=== PATIENT | male | born 1975 | race Caucasian/White ===

== ENCOUNTER 2017-10-07 07:13 | Emergency (ER) | payer MEDICAID ==
[2017-10-07 07:40] LABS: BASOPHILS 0.1 % (0-2); EOSINOPHILS 0.1 % (0-7); HEMOGLOBIN 14.3 g/dL (13.5-17.5); IMMATURE GRANULOCYTES 0.2 % (0-5); LYMPHOCYTES 24.1 % (15-50); MCH 28.5 pg (26.0-34.0); MCHC 33.3 g/dL (31.0-37.0); MCV 85.8 fL (80.0-100.0); MEAN PLATELET VOLUME 10.8 fL (7.4-10.4); MONOCYTES 6.1 % (2-11); NEUTROPHILS 69.4 % (40-80); PLATELET COUNT 185 10x3/uL (130-400); RBC 5.01 10x6/uL (4.20-6.10); RDW 18.2 % (11.5-14.5); WBC 13.6 10x3/uL (4.8-10.8)
[2017-10-07 07:56] LABS: ALBUMIN 4.7 g/dL (3.4-5.0); ALKALINE PHOSPHATASE 109 U/L (46-116); ALT (SGPT) 34 U/L (10-68); CALC OSMOLALITY 270 mosm/kg (275-300); CALCIUM 9.7 mg/dL (8.5-10.1); CARBON DIOXIDE 16.4 mmol/L (21.0-32.0); CHLORIDE - SERUM 95 mmol/L (98-107); CREATININE - SERUM 1.1 mg/dL (0.6-1.3); GLUCOSE 88 mg/dL (74-106); POTASSIUM - SERUM 5.7 mmol/L (3.5-5.1); PROTEIN - SERUM 9.4 g/dL (6.4-8.2); SODIUM 134 mmol/L (136-145); UREA NITROGEN 23 mg/dL (7-18); eGFR NON AFRICAN AMERICAN 77 mL/min (90-120)
[2017-10-07 08:22] LABS: LIPASE 66 U/L (73-393); TROPONIN-I < 0.017 ng/mL (0.000-0.060)
[2017-10-07 10:11] LABS: APPEARANCE CLEAR (CLEAR); BILIRUBIN NEGATIVE (NEGATIVE); COLOR YELLOW (YELLOW); GLUCOSE NEGATIVE (NEGATIVE); KETONE LARGE mg/dL (NEGATIVE); NITRITE NEGATIVE (NEGATIVE); PROTEIN NEGATIVE (NEGATIVE); SPECIFIC GRAVITY 1.025 (1.005-1.020); UROBILINOGEN NORMAL (NORMAL)
[2017-10-07 10:14] LABS: UDS - AMPHET NEGATIVE QUAL (NEGATIVE); UDS - BARB NEGATIVE QUAL (NEGATIVE); UDS - BENZO NEGATIVE QUAL (NEGATIVE); UDS - COCAINE NEGATIVE QUAL (NEGATIVE); UDS - OPIATE NEGATIVE QUAL (NEGATIVE); UDS - PCP NEGATIVE QUAL (NEGATIVE); UDS - THC NEGATIVE QUAL (NEGATIVE)
== END 2017-10-07 13:00 | disposition short-term general hospital (02) ==
LOC: D.ER 07:13
PROVIDERS: Family Medicine
DX: R11.10 Vomiting, unspecified (principal); R45.851 Suicidal ideations